=== PATIENT | male | born 1965 | race Caucasian/White ===

== ENCOUNTER 2018-03-03 05:43 | Emergency (ER) | payer OTHER ==
[~2018-03-03] VITALS: Ht 170.2 cm; Wt 108.9 kg
[2018-03-03 05:50] VITALS: BP_SYST 153
[2018-03-03] MEDS ORDERED: EPINEPHrine JECT 1 MG/10 ML SYR IM ONE (06:15)
[2018-03-03] MEDS ORDERED: PREDNISONE 20 MG TABLET PO ONE (06:15)
[2018-03-03] MEDS ORDERED: EPINEPHrine 1 MG/ML AMP IM ONE (06:30)
[2018-03-03] MEDS ORDERED: EPINEPHrine 1 MG/ML AMP ONE (06:31)
[2018-03-03 07:10] VITALS: BP_SYST 148
== END 2018-03-03 07:10 | disposition home or self-care (01) ==
LOC: SED 05:43
DX: T78.49XA Other allergy, initial encounter (principal); R22.0 Localized swelling, mass and lump, head; X58.XXXA Exposure to other specified factors, initial encounter
CPT/HCPCS: 96372; 99283; J0171 ×2; J7512